=== PATIENT | female | born 1995 | race Caucasian/White ===

== ENCOUNTER 2017-05-10 11:40 | Observation (INO) | payer MEDICAID ==
[~2017-05-10] VITALS: Ht 157.5 cm; Wt 60.0 kg
[2017-05-10] MEDS ORDERED: ACETAMINOPHEN 650MG/20.3ML UDC PO ONE (12:30)
[2017-05-10 13:02] LABS: BASOPHILS % 0.3 % (0.0-2.0); EOSINOPHILS % 7.6 % (0.0-5.0); HEMATOCRIT. 27.7 % (36.0-48.0); HEMOGLOBIN. 9.1 g/dL (12.0-16.0); LYMPHOCYTES % 15.8 % (20.0-50.0); MEAN CORPUSCULAR HEMOGLOBIN 26.7 pg (28.0-32.0); MEAN CORPUSCULAR VOLUME 80.9 fL (81.0-99.0); MEAN PLATELET VOLUME 10.3 fl (7.4-10.4); MONOCYTES % 6.4 % (2.0-8.0); NEUTROPHILS % 69.9 % (40.0-76.0); PLATELET 145 x1000/uL (130-400); RED BLOOD CELL COUNT 3.42 mill/uL (4.2-5.4); RED CELL DISTRIBUTION WIDTH 12.9 % (11.6-14.6)
[2017-05-10 13:07] LABS: PROTHROMBIN TIME 10.2 sec
[2017-05-10 13:11] LABS: CARBON DIOXIDE 25 mEq/L (21-32); CHLORIDE 105 mEq/L (98-107); TROPONIN I < 0.02 ng/mL (0.00-0.04)
[2017-05-10 15:39] LABS: CLARITY URINE CLOUDY (CLEAR); COLOR URINE YELLOW (YELLOW); GLUCOSE URINE NEGATIVE (NEGATIVE); KETONES URINE NEGATIVE (NEGATIVE); LEUKOCYTE ESTERASE URINE 3+ (NEGATIVE); NITRITE URINE NEGATIVE (NEGATIVE); OCCULT BLOOD URINE NEGATIVE (NEGATIVE); PH URINE 8.5 (4.5-8.0); PROTEIN URINE NEGATIVE (NEGATIVE); SPECIFIC GRAVITY URINE 1.008 (1.005-1.030); UROBILINOGEN URINE 0.2 E.U./dL (0.2-1.0)
[2017-05-10] MEDS ORDERED: NITROFURANTOIN 100MG M/M CAPSULE PO ONE (16:45)
[2017-05-10 16:50] VITALS: BP 99/65
[2017-05-10] MEDS ORDERED: PREN-88 PO (18:07)
== END 2017-05-10 18:10 | disposition home or self-care (01) ==
LOC: ER 11:51 → L&D 17:10
PROVIDERS: ADMIT Obstetrics & Gynecology; ATTEND Obstetrics & Gynecology
DX: O23.43 Unspecified infection of urinary tract in pregnancy, third trimester (principal); O26.893 Other specified pregnancy related conditions, third trimester; R53.1 Weakness; R07.9 Chest pain, unspecified; R51 Headache; R52 Pain, unspecified; Z3A.29 29 weeks gestation of pregnancy
CPT/HCPCS: 36415; 71010; 80053; 81001; 83880; 84484; 84702; 85025; 85610; 87086; 93005; 99285; G0378; 99281

== ENCOUNTER 2017-08-11 20:32 | Emergency (ER) | payer MEDICAID ==
[~2017-08-11] VITALS: Ht 157.5 cm; Wt 61.2 kg
[~2017-08-11 20:32] MED LIST: PREN-88 PO
[2017-08-11] MEDS ORDERED: ONDANSETRON HCL 4MG/2ML VIAL IV STA (23:57)
[2017-08-11] MEDS ORDERED: SODIUM CHLORIDE 0.9% 1,000 ML IV ONE (23:57)
[2017-08-12 00:20] LABS: CLARITY URINE CLEAR (CLEAR); COLOR URINE YELLOW (YELLOW); GLUCOSE URINE NEGATIVE (NEGATIVE); KETONES URINE NEGATIVE (NEGATIVE); LEUKOCYTE ESTERASE URINE 2+ (NEGATIVE); NITRITE URINE NEGATIVE (NEGATIVE); OCCULT BLOOD URINE NEGATIVE (NEGATIVE); PH URINE 6.5 (4.5-8.0); PROTEIN URINE NEGATIVE (NEGATIVE); SPECIFIC GRAVITY URINE 1.024 (1.005-1.030)
[2017-08-12 00:21] LABS: BASOPHILS % 0.4 % (0.0-2.0); EOSINOPHILS % 0.6 % (0.0-5.0); HEMATOCRIT. 34.2 % (36.0-48.0); HEMOGLOBIN. 11.6 g/dL (12.0-16.0); LYMPHOCYTES % 10.3 % (20.0-50.0); MEAN CORPUSCULAR HEMOGLOBIN 26.2 pg (28.0-32.0); MEAN CORPUSCULAR VOLUME 77.6 fL (81.0-99.0); MEAN PLATELET VOLUME 9.6 fl (7.4-10.4); MONOCYTES % 2.7 % (2.0-8.0); PLATELET 201 x1000/uL (130-400); RED BLOOD CELL COUNT 4.41 mill/uL (4.2-5.4); RED CELL DISTRIBUTION WIDTH 16.8 % (11.6-14.6)
[2017-08-12 00:25] LABS: CHLORIDE 105 mEq/L (98-107)
[2017-08-12 00:34] LABS: CARBON DIOXIDE 25 mEq/L (21-32)
[2017-08-12 02:06] VITALS: BP 133/75
== END 2017-08-12 02:05 | disposition home or self-care (01) ==
LOC: ER 20:56
DX: R11.2 Nausea with vomiting, unspecified (principal); R03.0 Elevated blood-pressure reading, without diagnosis of hypertension; Z72.0 Tobacco use
CPT/HCPCS: 36415; 80053; 81001; 81025; 85025; 96361; 96374; 99285; J2405; J7030; Z7610

== ENCOUNTER 2018-04-28 13:25 | Emergency (ER) | payer MEDICAID ==
[~2018-04-28] VITALS: Ht 157.5 cm; Wt 68.0 kg
[2018-04-28] MEDS ORDERED: BACITRACIN ZINC OINT UDPKT TOP ONE (15:45)
[2018-04-28] MEDS ORDERED: ACETAMINOPHEN 500MG TABLET PO ONE (15:45)
[2018-04-28] MEDS ORDERED: IBUPROFEN 600MG TABLET PO ONE (15:45)
[2018-04-28 15:54] VITALS: BP 119/72
== END 2018-04-28 17:15 | disposition home or self-care (01) ==
LOC: ER 13:25
DX: S00.81XA Abrasion of other part of head, initial encounter (principal); V47.0XXA Car driver injured in collision with fixed or stationary object in nontraffic accident, initial encounter; W22.11XA Striking against or struck by driver side automobile airbag, initial encounter; Y93.89 Activity, other specified; Y92.481 Parking lot as the place of occurrence of the external cause
CPT/HCPCS: 99284

== ENCOUNTER 2022-03-27 23:49 | Emergency (ER) | payer MEDICAID ==
[~2022-03-27] VITALS: Ht 154.9 cm; Wt 72.2 kg
[2022-03-27 23:52] VITALS: BP 124/78
== END 2022-03-28 05:31 | disposition left against medical advice (07) ==
LOC: ER 23:49
DX: Z53.21 Procedure and treatment not carried out due to patient leaving prior to being seen by health care provider (principal)